=== PATIENT | male | born 1950 | race Caucasian/White ===

== ENCOUNTER → 2018-05-22 09:10 | Outpatient (CLI) | payer MEDICARE, OTHER, SELFPAY ==
[2018-05-22 11:29] LABS: Alanine Aminotransferase 34 IU/L (21-72); Albumin 4.2 g/dL (3.5-5.0); Albumin Globulin Ratio 1.8 (1.0-2.8); Alkaline Phosphatase 58 U/L (38-126); Aspartate Aminotransferase 28 IU/L (17-59); BUN Creatinine Ratio 17.8 (6-22); Bilirubin Total 1.1 mg/dL (0.2-1.3); Blood Urea Nitrogen 16 mg/dL (9-20); Calcium 9.5 mg/dL (8.4-10.2); Carbon Dioxide 28 mmol/L (22-32); Chloride 102 mmol/L (98-107); Cholesterol 180 mg/dL (140-199); Estimated Glomerular Filt Rate > 60.0 mL/min (>60); Globulin 2.4 g/dL (1.7-4.1); Glucose 92 mg/dL (80-110); HDL Cholesterol 31 mg/dL (40-60); HEMOLYSIS < 15 (0-50); LDL Cholesterol Calculated 110 mg/dL (<100); Potassium 4.8 mmol/L (3.4-5.1); Sodium 142 mmol/L (137-145); Total Protein 6.6 g/dL (6.3-8.2); Triglycerides 197 mg/dL (35-150)
[2018-05-23 14:14] LABS: PSA Free % 11 % (calc) (> 25); PSA, Total 10.4 ng/mL (< 4.1)
== END ==
PROVIDERS: PCP Family Medicine; Referring Provider Urology; Visit Provider Family Medicine
DX: R97.20 Elevated prostate specific antigen [PSA] (principal); I49.3 Ventricular premature depolarization; N40.0 Benign prostatic hyperplasia without lower urinary tract symptoms; E78.41 Elevated Lipoprotein(a)
CPT/HCPCS: 36415; 80053; 80061; 84153; 84154

== ENCOUNTER → 2019-06-09 13:19 | Outpatient (CLI) | payer MEDICARE, OTHER, SELFPAY ==
[2019-06-12 15:42] LABS: PSA Free % 10 % (calc) (> 25); PSA, Total 15.5 ng/mL (< 4.1)
== END ==
PROVIDERS: PCP Family Medicine; Visit Provider Urology
DX: R97.20 Elevated prostate specific antigen [PSA] (principal)
CPT/HCPCS: 36415; 84153; 84154

== ENCOUNTER → 2019-07-31 10:20 | Outpatient (CLI) | payer MEDICARE, OTHER, SELFPAY ==
[2019-08-03 15:40] LABS: PSA Free % 18 % (calc) (> 25); PSA, Total 7.8 ng/mL (< 4.1)
== END ==
PROVIDERS: PCP Family Medicine; Referring Provider Urology; Visit Provider Urology
DX: R97.20 Elevated prostate specific antigen [PSA] (principal)
CPT/HCPCS: 36415; 84153; 84154

== ENCOUNTER → 2019-08-10 07:51 | Outpatient (CLI) | payer MEDICARE, OTHER, SELFPAY ==
[2019-08-10 08:11] LABS: Add Manual Diff / Slide Review NO; Basophils Absolute Auto 0 /uL (0-100); Basophils Percent Auto 0.4 % (0-2); Eosinophils Absolute Auto 200 /uL (0-450); Eosinophils Percent Auto 2.1 % (2-4); Hematocrit 49.3 % (41-53); Hemoglobin 16.7 g/dL (13.5-17.5); Lymphocytes Absolute Auto 1900 /uL (1100-4500); Lymphocytes Percent Auto 22.6 % (25-40); Mean Corpuscular HGB Conc 33.9 % (30-36); Mean Corpuscular Hemoglobin 30.6 PG (26-34); Mean Corpuscular Volume 90.1 fL (80-100); Monocytes Absolute Auto 700 /uL (0-900); Monocytes Percent Auto 8.9 % (3-14); Neutrophils Absolute Auto 5400 /uL (1500-7000); Platelet Count 210 X10^3/uL (150-400); Red Blood Cell Count 5.47 X10^6/uL (4.5-5.9); Red Cell Distribution Width 12.4 % (11.6-14.8); White Blood Cell Count 8.2 X10^3/uL (4.5-11.0)
[2019-08-10 08:27] LABS: Alanine Aminotransferase 35 IU/L (<50); Albumin 4.4 g/dL (3.5-5.0); Albumin Globulin Ratio 1.4 (1.0-2.8); Alkaline Phosphatase 64 U/L (38-126); Aspartate Aminotransferase 35 IU/L (17-59); BUN Creatinine Ratio 19.3 (6-22); Bilirubin Total 1.5 mg/dL (0.2-1.3); Blood Urea Nitrogen 17 mg/dL (9-20); Calcium 9.7 mg/dL (8.4-10.2); Carbon Dioxide 31 mmol/L (22-32); Chloride 103 mmol/L (98-107); Estimated Glomerular Filt Rate > 60.0 mL/min (>60); Globulin 3.1 g/dL (1.7-4.1); Glucose 111 mg/dL (80-110); HEMOLYSIS < 15 (0-50); Potassium 4.8 mmol/L (3.4-5.1); Sodium 140 mmol/L (137-145); Total Protein 7.5 g/dL (6.3-8.2)
[2019-08-10 08:42] LABS: Vitamin D 25 Hydroxy (D3) 53.8 ng/mL (30.0-100.0)
== END ==
PROVIDERS: PCP Family Medicine; Referring Provider Family Medicine; Visit Provider Family Medicine
DX: Z13.1 Encounter for screening for diabetes mellitus (principal); G47.30 Sleep apnea, unspecified; E55.9 Vitamin D deficiency, unspecified
CPT/HCPCS: 36415; 80053; 82306; 85025

== ENCOUNTER → 2020-08-23 08:33 | Outpatient (CLI) | payer MEDICARE, OTHER, SELFPAY ==
[2020-08-23 09:35] LABS: Alanine Aminotransferase 31 IU/L (<50); Albumin 4.5 g/dL (3.5-5.0); Albumin Globulin Ratio 1.6 (1.0-2.8); Alkaline Phosphatase 69 U/L (38-126); Aspartate Aminotransferase 38 IU/L (17-59); Bilirubin Total 0.9 mg/dL (0.2-1.3); Blood Urea Nitrogen 16 mg/dL (9-20); Calcium 9.7 mg/dL (8.4-10.2); Carbon Dioxide 28 mmol/L (22-32); Chloride 104 mmol/L (98-107); Cholesterol 184 mg/dL (140-199); Estimated Glomerular Filt Rate > 60.0 mL/min (>60); Globulin 2.8 g/dL (1.7-4.1); Glucose 98 mg/dL (80-110); HDL Cholesterol 34 mg/dL (40-60); HEMOLYSIS < 15 (0-50); LDL Cholesterol Calculated 124 mg/dL (<100); Potassium 4.1 mmol/L (3.4-5.1); Sodium 140 mmol/L (137-145); Total Protein 7.3 g/dL (6.3-8.2); Triglycerides 130 mg/dL (35-150)
[2020-08-23 09:56] LABS: Vitamin D 25 Hydroxy (D3) 61.6 ng/mL (30.0-100.0)
== END ==
PROVIDERS: PCP Family Medicine; Referring Provider Family Medicine; Visit Provider Family Medicine
DX: Z13.220 Encounter for screening for lipoid disorders (principal); E55.9 Vitamin D deficiency, unspecified; Z13.1 Encounter for screening for diabetes mellitus
CPT/HCPCS: 36415; 80053; 80061; 82306

== ENCOUNTER → 2021-10-05 08:33 | Outpatient (CLI) | payer MEDICARE, OTHER, SELFPAY ==
[2021-10-05 10:30] LABS: Alanine Aminotransferase 26 IU/L (<50); Albumin 4.2 g/dL (3.5-5.0); Albumin Globulin Ratio 1.7 (1.0-2.8); Alkaline Phosphatase 57 U/L (38-126); Aspartate Aminotransferase 29 IU/L (17-59); BUN Creatinine Ratio 19.8 (6-22); Bilirubin Total 1.2 mg/dL (0.2-1.3); Blood Urea Nitrogen 18 mg/dL (9-20); Carbon Dioxide 30 mmol/L (22-32); Chloride 104 mmol/L (98-107); Cholesterol 182 mg/dL (140-199); Estimated Glomerular Filt Rate > 60 mL/min (>60); Globulin 2.5 g/dL (1.7-4.1); Glucose 91 mg/dL (80-110); HDL Cholesterol 36 mg/dL (40-60); HEMOLYSIS < 15 (0-50); LDL Cholesterol Calculated 122 mg/dL (<100); Potassium 4.4 mmol/L (3.4-5.1); Sodium 139 mmol/L (137-145); Total Protein 6.7 g/dL (6.3-8.2); Triglycerides 120 mg/dL (35-150)
[2021-10-05 10:41] LABS: Vitamin D 25 Hydroxy (D3) 78.9 ng/mL (30.0-100.0)
== END ==
PROVIDERS: PCP Family Medicine; Referring Provider Family Medicine; Visit Provider Family Medicine
DX: E78.5 Hyperlipidemia, unspecified (principal); E55.9 Vitamin D deficiency, unspecified; Z13.1 Encounter for screening for diabetes mellitus
CPT/HCPCS: 36415; 80053; 80061; 82306

== ENCOUNTER → 2021-12-25 12:36 | Outpatient (CLI) | payer MEDICARE, OTHER, SELFPAY ==
--- NOTE | 2021-12-25 12:39 | DI.US.S_ITS ---
PROCEDURE: US SCROTUM INDICATIONS: LEFT TESTICULAR PAIN, SWELLING TECHNIQUE: Real-time scanning was performed of the scrotum and testicles, with image documentation. Color and pulse Doppler interrogation was performed of both testicles. COMPARISON: None. FINDINGS: Right: Testicle is normal in size at 3.8 x 2.2 x 2.7 cm, and homogenous in echotexture. Epididymis is normal in overall size and morphology. Trace hydrocele. No varicoceles. Overlying scrotal skin is normal in thickness. Left: Testicle is normal in size at 4.0 x 2.4 x 2.8 cm, and homogeneous in echotexture. Slightly heterogeneous and enlarged epididymis measuring 1.7 cm in thickness. Normal vascularity.. Moderate hydrocele with debris and septations. Overlying scrotal skin is normal in thickness. Doppler: Color and pulse Doppler demonstrate normal and symmetric arterial flow in both testicles. IMPRESSION: No torsion or orchitis. The left epididymis is slightly thickened and heterogeneous compared to the right. Moderate left debris containing and septated hydrocele. Dictated by: Les Henley M.D. on 12/25/2021 at 13:46 Approved by: Les Henley M.D. on 12/25/2021 at 13:50
[2021-12-25 13:23] LABS: Appearance Urine UA CLEAR; Bilirubin Urine UA NEGATIVE (NEGATIVE); Color Urine UA YELLOW; Glucose Urine UA NEGATIVE (Negative); Ketones Urine UA NEGATIVE (NEGATIVE); Leukocyte Esterase Urine UA NEGATIVE (NEGATIVE); Nitrite Urine UA NEGATIVE (Negative); Occult Blood Urine UA NEGATIVE (Negative); Protein Urine UA NEGATIVE (Negative); Specific Gravity Urine UA 1.025 (1.000-1.035); Urobilinogen Urine UA 0.2 E.U./dL (0.2)
[2021-12-25 13:36] LABS: Amorphous Sediment Urine 1+; Bacteria Urine Occasional (0-1); RBC Urine None Seen (0-5/HPF); Squamous Epithelial Cell Urine 0-1 /HPF (0-5/HPF); WBC Urine 0-1/HPF (0-5/HPF)
== END ==
PROVIDERS: PCP Family Medicine; Referring Provider Family Medicine; Visit Provider Family Medicine
DX: N50.812 Left testicular pain (principal); N50.89 Other specified disorders of the male genital organs; N43.3 Hydrocele, unspecified
CPT/HCPCS: 76870; 81001; 87086

== ENCOUNTER 2022-09-25 14:54 | Emergency (ER) | payer MEDICARE, OTHER, SELFPAY ==
[2022-09-25 14:58] VITALS: BP 176/90; PULSE 83; RESP 15; TEMP 36.7; O2SAT 94; BMI 29.9
--- NOTE | 2022-09-25 15:01 | DI.RAD.S_ITS ---
PROCEDURE: XR SHOULDER LT MIN 2V INDICATIONS: fall onto left shoulder TECHNIQUE: 3 views of the shoulder were acquired. COMPARISON: [facility], CR, CHEST 1 VIEW, 12/19/2015, 17:39. [facility], CR, XR CLAVICLE LT, 09/25/2022, 14:59. [facility], CR, XR RIBS LT MIN 3V W CXR1V, 09/25/2022, 14:59. FINDINGS: Bones: Left clavicle fracture, described separately. No left shoulder dislocation. Soft tissues: Soft tissue calcifications projecting next the left humeral head could represent sequela of calcific tendinopathy. IMPRESSION: 1. Left clavicle fracture, described separately. 2. No evidence of left shoulder dislocation. Dictated by: Chele Arango M.D. on 09/25/2022 at 15:41 Approved by: Chele Arango M.D. on 09/25/2022 at 15:44
--- NOTE | 2022-09-25 15:02 | DI.RAD.S_ITS ---
PROCEDURE: XR RIBS LT MIN 3V W CXR1V INDICATIONS: shoulder pain TECHNIQUE: 2 views of the left ribs were acquired, along with a single view chest. COMPARISON: [facility], , CHEST 1 VIEW, 12/19/2015, 17:39. FINDINGS: Surgical changes and devices: None. Bones and chest wall: No fractures or dislocations. No suspicious bony lesions. Overlying soft tissues appear unremarkable. Lungs and pleura: No pleural effusions or pneumothorax. Lungs appear clear. Mediastinum: Mediastinal contours appear normal. Heart size is normal. IMPRESSION: No acute displaced rib fracture identified. CT of the chest could be obtained if clinically indicated. Dictated by: Chele Arango M.D. on 09/25/2022 at 15:35 Approved by: Chele Arango M.D. on 09/25/2022 at 15:41
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
[2022-09-25] MEDS: LIDOCAINE PATCH 1 EACH ADH..PATCH TOP (15:33)
--- NOTE | 2022-09-25 15:36 | PC.NURSE ---
Patient denied taking the hydrocodone bitartrate and acetaminophen that was ordered due to concerns of ability to drive if he takes it. Patient experincing 10/10 pain prior to being placed in a sling. Sling placed to provide comfort. Patient denies any pain while arm is immobile. Provider notified. Medication returned to the pyxis.
[2022-09-25 16:23] VITALS: BP 167/72; PULSE 78; RESP 19; O2SAT 97
== END 2022-09-25 16:24 | disposition home or self-care (01) ==
PROVIDERS: Emergency Provider Nurse Practitioner Critical Care Medicine; PCP Family Medicine
DX: S42.032A Displaced fracture of lateral end of left clavicle, initial encounter for closed fracture (principal); V19.9XXA Pedal cyclist (driver) (passenger) injured in unspecified traffic accident, initial encounter
CPT/HCPCS: 71101; 73000; 73030; 81003; 99283; 99284

== ENCOUNTER → 2022-10-02 07:01 | Outpatient (CLI) | payer MEDICARE, OTHER, SELFPAY ==
[2022-10-02 08:02] LABS: Add Manual Diff / Slide Review NO; Basophils Absolute Auto 0 /uL (0-100); Basophils Percent Auto 0.4 % (0-2); Eosinophils Absolute Auto 200 /uL (0-450); Eosinophils Percent Auto 2.4 % (2-4); Hematocrit 46.5 % (41-53); Hemoglobin 16.1 g/dL (13.5-17.5); Lymphocytes Absolute Auto 1800 /uL (1100-4500); Mean Corpuscular HGB Conc 34.6 % (30-36); Mean Corpuscular Hemoglobin 30.3 PG (26-34); Mean Corpuscular Volume 87.6 fL (80-100); Monocytes Absolute Auto 800 /uL (0-900); Monocytes Percent Auto 9.6 % (3-14); Neutrophils Absolute Auto 5800 /uL (1500-7000); Neutrophils Percent Auto 66.6 % (50-75); Platelet Count 206 X10^3/uL (150-400); Red Blood Cell Count 5.31 X10^6/uL (4.5-5.9); Red Cell Distribution Width 12.9 % (11.6-14.8); White Blood Cell Count 8.7 X10^3/uL (4.5-11.0)
[2022-10-02 09:56] LABS: Alanine Aminotransferase 28 IU/L (<50); Albumin 4.1 g/dL (3.5-5.0); Albumin Globulin Ratio 1.5 (1.0-2.8); Alkaline Phosphatase 73 U/L (38-126); Aspartate Aminotransferase 25 IU/L (17-59); BUN Creatinine Ratio 20.8 (6-22); Bilirubin Total 1.3 mg/dL (0.2-1.3); Blood Urea Nitrogen 16 mg/dL (9-20); Calcium 9.1 mg/dL (8.4-10.2); Carbon Dioxide 28 mmol/L (22-32); Chloride 102 mmol/L (98-107); Cholesterol 185 mg/dL (140-199); Estimated Glomerular Filt Rate > 60 mL/min (>60); Globulin 2.7 g/dL (1.7-4.1); Glucose 86 mg/dL (80-110); HDL Cholesterol 34 mg/dL (40-60); HEMOLYSIS < 15 (0-50); LDL Cholesterol Calculated 121 mg/dL (<100); Potassium 4.3 mmol/L (3.4-5.1); Sodium 139 mmol/L (137-145); Total Protein 6.8 g/dL (6.3-8.2); Triglycerides 151 mg/dL (35-150)
[2022-10-02 10:14] LABS: Vitamin D 25 Hydroxy (D3) 63.2 ng/mL (30.0-100.0)
== END ==
PROVIDERS: PCP Family Medicine; Referring Provider Family Medicine; Visit Provider Family Medicine
DX: E78.5 Hyperlipidemia, unspecified (principal); E55.9 Vitamin D deficiency, unspecified; R53.83 Other fatigue; N40.0 Benign prostatic hyperplasia without lower urinary tract symptoms
CPT/HCPCS: 36415; 80053; 80061; 82306; 85025

== ENCOUNTER 2022-10-04 08:31 | Day surgery (SDC) | payer MEDICARE, OTHER, SELFPAY ==
[2022-10-01 13:59] VITALS: BMI 29.1
[2022-10-04] VITALS (10 sets, daily range): BP systolic 107–146; BP diastolic 55–89; PULSE 67–84; RESP 12–20; TEMP 36.4–36.9; O2SAT 90–95; BMI 29.1
--- NOTE | 2022-10-04 | DI.RAD.S_ITS ---
PROCEDURE: XR CLAVICLE LT INDICATIONS: ORIF LEFT CLAVICLE TECHNIQUE: 2 views of the clavicle were acquired. COMPARISON: [facility], CR, XR CLAVICLE LT, 09/25/2022, 14:59. FINDINGS: Intraoperative fluoroscopic support for open reduction and internal fixation of left midclavicular fracture with plate and screw fixation. Postsurgical alignment appears anatomic. Degenerative changes of the acromioclavicular and glenohumeral joints. IMPRESSION: Intraoperative fluoroscopic support for ORIF of left midclavicular fracture. Please see separate procedure note for further details. Dictated by: Robbin Sanchez M.D. on 10/04/2022 at 12:40 Approved by: Robbin Sanchez M.D. on 10/04/2022 at 12:41
[2022-10-04] MEDS: LACTATED RINGERS 1,000 ML 42 ML IV (09:25)
[2022-10-04] MEDS: PREGABALIN 75 MG CAPSULE PO (09:58)
[2022-10-04] MEDS: ACETAMINOPHEN 325 MG TABLET 975 MG PO (09:58)
--- NOTE | 2022-10-04 10:02 | PM.PREOP ---
Pre-operative Note Interval Note History & Physical reviewed/Exam performed by Physician: Yes Changes to H&P: No
[2022-10-04] MEDS: CEFAZOLIN 2 GM/100 ML PREMIX 100 ML IV (10:22)
--- NOTE | 2022-10-04 11:23 | SUR.OPER ---
Beach chair with Maquet shoulder positioner. Lower body on padded OR bed. Head in foam padded head cradle, secured with straps. Non-operative arm secured <90 degrees abduction. Pillow under knees. Safety belt at thigh. Cloth tape over blanket over lower legs. Confirmed by Dr. Alvarado.
[2022-10-04] MEDS: BUPIVACAINE 0.25% (PF) VIAL 30 ML INJ (11:33)
--- NOTE | 2022-10-04 12:06 | SUR.OPER ---
LEFT SHOULDER SLING IN PLACE PRIOR TO PT. TRANSFER TO PACU.
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
== END 2022-10-04 13:43 | disposition home or self-care (01) ==
PROVIDERS: PCP Family Medicine; Referring Provider Orthopaedic Surgery Foot and Ankle Surgery; Visit Provider Orthopaedic Surgery Foot and Ankle Surgery
PROC: 0PSB04Z Reposition Left Clavicle with Internal Fixation Device, Open Approach (ICD-10-PCS; CPT 23515; principal; 2022-10-04 09:45)
DX: S42.022A Displaced fracture of shaft of left clavicle, initial encounter for closed fracture (principal); G47.30 Sleep apnea, unspecified; Y93.55 Activity, bike riding
CPT/HCPCS: 23515; 73000; 76000; C1713; J0690; J1170; J2405; J2704

== ENCOUNTER → 2022-11-15 09:48 | Outpatient (CLI) | payer MEDICARE, OTHER, SELFPAY ==
--- NOTE | 2022-11-15 09:51 | DI.RAD.S_ITS ---
PROCEDURE: XR CHEST 2V INDICATIONS: hypoxia and fatigue TECHNIQUE: 2 views of the chest were acquired. COMPARISON: [facility], , CHEST 1 VIEW, 12/19/2015, 17:39. FINDINGS: Surgical changes and devices: Left clavicle fixation hardware. Lungs and pleura: Lungs are clear. No pleural effusions or pneumothorax. Mediastinum: Mediastinal contours are normal. Heart size is normal. Bones and chest wall: No suspicious bony abnormalities. Soft tissues appear unremarkable. IMPRESSION: No acute cardiopulmonary abnormality. Dictated by: Chele Arango M.D. on 11/15/2022 at 12:20 Approved by: Chele Arango M.D. on 11/15/2022 at 12:24
--- NOTE | 2022-11-21 09:43 | PM.PFT.1 ---
Pulmonary Function Test Referral & Results Date Patient Seen: 11/15/22 Results: The spirometry demonstrates an FVC of 4.41 L which is 103% of predicted. The FEV1 was measured at 3.26 L which is 105% of predicted. The FEV1/FVC ratio was 74 which is 101% of predicted. Following the administration of bronchodilator there was 35% improvement in FEF 25-75%. Lung volumes show an SVC of 4.63 L which is 102% of predicted. The diffusing capacity was measured at 32.89 which is 101% of predicted. The maximum voluntary ventilation was minimally reduced, if at all. Interpretation: This study demonstrates probably normal pulmonary function.
== END ==
PROVIDERS: PCP Family Medicine; Referring Provider Family Medicine; Visit Provider Family Medicine
DX: R09.02 Hypoxemia (principal); R53.83 Other fatigue; Z86.16 Personal history of COVID-19; J98.8 Other specified respiratory disorders
CPT/HCPCS: 71046; 94060; 94726; 94729

== ENCOUNTER → 2023-01-11 07:56 | Outpatient (CLI) | payer MEDICARE, OTHER, SELFPAY ==
[2023-01-11 11:02] LABS: Free T3, Triiodothyronine Free 3.78 pg/mL (2.77-5.27); Free T4, Direct Thyroxine 1.13 ng/dL (0.78-2.19)
[2023-01-11 11:09] LABS: Prostate Specific Antigen Scrn 16.9 ng/mL (0.1-4.0)
[2023-01-11 11:16] LABS: TSH w/ Reflex to FT4 0.84 uIU/mL (0.47-4.68)
== END ==
PROVIDERS: PCP Family Medicine; Referring Provider Family Medicine; Visit Provider Family Medicine
DX: Z12.5 Encounter for screening for malignant neoplasm of prostate (principal); R53.82 Chronic fatigue, unspecified; R97.20 Elevated prostate specific antigen [PSA]
CPT/HCPCS: 36415; 84439; 84443; 84481; G0103

== ENCOUNTER → 2023-05-31 07:45 | Outpatient (CLI) | payer MEDICARE, OTHER, SELFPAY ==
[2023-05-31 09:48] LABS: Testosterone 315 ng/dL (71.8-623)
== END ==
LOC: LAB 07:49
PROVIDERS: PCP Family Medicine; Referring Provider Family Medicine; Visit Provider Family Medicine
DX: R53.82 Chronic fatigue, unspecified (principal)
CPT/HCPCS: 36415; 84403

== ENCOUNTER → 2024-04-02 08:10 | Outpatient (CLI) | payer MEDICARE, OTHER, SELFPAY ==
[2024-04-02 08:58] LABS: Add Manual Diff / Slide Review NO; Basophils Absolute Auto 0 /uL (0-100); Basophils Percent Auto 0.4 % (0-2); Eosinophils Absolute Auto 200 /uL (0-450); Eosinophils Percent Auto 2.3 % (2-4); Hematocrit 48.7 % (41-53); Hemoglobin 16.3 g/dL (13.5-17.5); Lymphocytes Absolute Auto 1600 /uL (1100-4500); Lymphocytes Percent Auto 23.5 % (25-40); Mean Corpuscular HGB Conc 33.4 % (30-36); Mean Corpuscular Hemoglobin 30.2 PG (26-34); Mean Corpuscular Volume 90.6 fL (80-100); Monocytes Absolute Auto 600 /uL (0-900); Monocytes Percent Auto 8.8 % (3-14); Neutrophils Absolute Auto 4500 /uL (1500-7000); Platelet Count 229 X10^3/uL (150-400); Red Blood Cell Count 5.38 X10^6/uL (4.5-5.9); Red Cell Distribution Width 12.8 % (11.6-14.8); White Blood Cell Count 6.9 X10^3/uL (4.5-11.0)
[2024-04-02 09:40] LABS: Alanine Aminotransferase 26 IU/L (<50); Albumin 4.2 g/dL (3.5-5.0); Albumin Globulin Ratio 1.8 (1.0-2.8); Alkaline Phosphatase 65 U/L (38-126); Aspartate Aminotransferase 28 IU/L (17-59); BUN Creatinine Ratio 20.5 (6-22); Bilirubin Total 1.3 mg/dL (0.2-1.3); Blood Urea Nitrogen 15 mg/dL (9-20); Calcium 9.5 mg/dL (8.4-10.2); Carbon Dioxide 26 mmol/L (22-32); Chloride 107 mmol/L (98-107); Cholesterol 180 mg/dL (140-199); Estimated Glomerular Filt Rate > 60 mL/min (>60); Globulin 2.3 g/dL (1.7-4.1); Glucose 98 mg/dL (80-110); HDL Cholesterol 35 mg/dL (40-60); HEMOLYSIS < 15 (0-50); LDL Cholesterol Calculated 119 mg/dL (<100); Potassium 4.4 mmol/L (3.4-5.1); Sodium 138 mmol/L (137-145); Total Protein 6.5 g/dL (6.3-8.2); Triglycerides 130 mg/dL (35-150)
[2024-04-02 10:11] LABS: Prostate Specific Antigen 15.2 ng/mL (0.10-4.00)
== END ==
PROVIDERS: PCP Family Medicine; Referring Provider Family Medicine; Visit Provider Family Medicine
DX: R53.83 Other fatigue (principal); E78.5 Hyperlipidemia, unspecified; N40.0 Benign prostatic hyperplasia without lower urinary tract symptoms
CPT/HCPCS: 36415; 80053; 80061; 84153; 85025

== ENCOUNTER → 2024-04-28 10:43 | Outpatient (CLI) | payer MEDICARE, OTHER, SELFPAY ==
--- NOTE | 2024-04-28 10:45 | DI.US.S_ITS ---
PROCEDURE: US ABDOMEN LIMITED INDICATIONS: PALPABLE LUMP AT PRIOR HERNIA REPAIR SITE TECHNIQUE: Real-time focused scanning was performed of the abdomen, with image documentation. COMPARISON: None. FINDINGS: Scanning is performed at the area of clinical concern within the prior abdominal wall hernia repair. At this site, no recurrent hernia can be seen. Note is made of mesh placement. IMPRESSION: No recurrent hernia can be seen. Dictated by: Alberto Faulkner M.D. on 04/28/2024 at 17:41 Approved by: Alberto Faulkner M.D. on 04/28/2024 at 17:41
== END ==
PROVIDERS: PCP Family Medicine; Referring Provider Family Medicine; Visit Provider Family Medicine
DX: R19.00 Intra-abdominal and pelvic swelling, mass and lump, unspecified site (principal); R22.2 Localized swelling, mass and lump, trunk
CPT/HCPCS: 76705